=== PATIENT | male | born 1995 | race Two or more races ===

== ENCOUNTER 2024-12-29 00:11 | Emergency (ER) | payer OTHER ==
[~2024-12-29] VITALS: Ht 167.6 cm; Wt 83.9 kg
[2024-12-29] MEDS ORDERED: KETOROLAC TROMETHAMINE 10 MG TABLET PO STA (01:49)
[2024-12-29] MEDS ORDERED: GUAIFENESIN 200 MG/10 ML BLIST.PACK PO STA (01:49)
[2024-12-29] MEDS ORDERED: KETOROLAC TROMETHAMINE 10 MG TABLET PO ONE (02:11)
[2024-12-29] MEDS ORDERED: GUAIFENESIN/DEXTROMETHORPHAN 100MG/10ML BLIST.PACK PO ONE (02:11)
[2024-12-29 02:30] LABS: HEMATOCRIT 43.8 % (39.0-48.0); HEMOGLOBIN 15.6 g/dL (13-16.00); MEAN CELL VOLUME 90.7 fL (80.0-100.00); MEAN CORPUSCULAR HEMOGLOBIN 32.2 pg (27.00-32.0); MEAN CORPUSCULAR HGB CONC 35.5 g/dl (32.0-36.0); PLATELET COUNT 202 K/uL (150-450); RED BLOOD COUNT 4.83 M/uL (4.00-6.00); RED CELL DISTRIBUTION WIDTH 13.6 % (11.5-14.5)
[2024-12-29] MEDS ORDERED: DOLOGESIC-DF 51 EACH PO (04:39)
[2024-12-29] MEDS ORDERED: OSEL75CA PO (04:39)
[2024-12-29] MEDS ORDERED: ZYNCOF 20-400120 ML PO (04:39)
== END 2024-12-29 04:52 | disposition home or self-care (01) ==
LOC: ER 00:13
PROVIDERS: General Practice
DX: J10.1 Influenza due to other identified influenza virus with other respiratory manifestations (principal); R05.9 Cough, unspecified; Z20.822 Contact with and (suspected) exposure to COVID-19